=== PATIENT | female | born 1995 | race Caucasian/White ===

== ENCOUNTER 2020-01-16 20:00 | Emergency (ER) | payer BC, SELFPAY ==
[2020-01-16 21:00] VITALS: BP 126/72; PULSE 92; RESP 14; TEMP 36.8; O2SAT 100; BMI 22.3
--- NOTE | 2020-01-16 21:11 | HMH.EDUTC ---
[facility] [place] Clinical Impression: Right lower quadrant abdominal pain Disposition: Still a Patient Condition on Discharge: Fair Referrals: Jade Coleman APRN [Primary Care Provider] - Medical Decision Making - Medical Records Medical records reviewed: No: I reviewed the patient's medical records. - Prince Inquiry Pt receiving controlled substance: No Vital Signs: 01/16/20 21:00 Temperature 98.3 F Temperature Source Oral Pulse Rate [Radial] 92 H Respiratory Rate 14 Blood Pressure [Right Arm] 126/72 Blood Pressure Mean [Right Arm] 90 Blood Pressure Source [Right Arm] Automatic Cuff Blood Pressure Position [Right Arm] Sitting 02 Sat by Pulse Oximetry 100 Oxygen Delivery Method Room Air Medical Decision Narrative: She was transferred to the ER for further evaluation of her abdominal pain. [facility] H[place] - General Stated complaint: bloating stomach pain Time Seen by Provider: 01/16/20 21:11 Mode of Arrival: Ambulatory Source of Information: Patient Limitations: No Limitations Description of Symptoms (Recalled from Triage Doc. by RN): bloatig, pain in lower right side, ausea, light headed, passed out a couple weeks ago HEENT Symptoms (Recalled from RN notes): No Resp Symptoms (Recalled from RN notes): No Skin Symptoms (Recalled from RN notes): No MS Symptoms (Recalled from RN notes): No Functional Status (Recalled from RN notes): wnl - History of Present Illness Provider Complaint: She c/o abdominal bloating and right lower quadrant pain for the past 2 days. 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 She state that she had a gynecological exam and her urine was checked and nothing abnormal was found. She is worried that she may have an appendicitis. - Related Data Allergies Allergy/AdvReac Type Severity Reaction Status Date / Time No Known Allergies Allergy Unverified 03/21/17 14:56 - Worker's Comp Is this a Worker's Comp case?: No [facility] History - Hepatitis A Screen Drug use history?: No High risk sexual behaviors?: No History of sexually transmitted infection?: No Currently employed?: No Childcare worker?: No Do you have indoor plumbing?: Yes Do you have electricity?: Yes Attestation statement:: This patient has been screened for Hepatitis A risk factors. I have reviewed the patient's past medical history: Yes - Social History Smoking Status: Current every day smoker Tobacco Type: cigarettes # Packs/Day (cigarettes): 1 Alcohol Intake: never Occupational Status: employed ROS Obtained: Yes All systems reviewed & no additional complaints - Constitutional Constitutional: Denies chills, Denies fever(s), Reports poor appetite, Reports malaise - Eyes Eyes: Denies eye discharge - ENT Ears, Nose, Mouth, and Throat: Denies dizziness, Denies otalgia, Reports sore throat - Cardiovascular Cardiovascular: Denies chest pain - Respiratory Respiratory: No chest congestion, No cough - Gastrointestinal Gastrointestingal: Reports: as per HPI - Genitourinary Female Genitourinary: Denies dysuria, Denies urinary frequency, Denies urinary incontinence, Denies urinary hesitancy, Denies urinary urgency, Denies vaginal discharge - Musculoskeletal Musculoskeletal: Denies back pain - Integumentary/Breasts Skin/Breast: Denies redness, Denies rash, Denies wounds - Neurologic Neurologic: Denies tingling/numbness/burning sensations Physical Exam - General General appearance: alert, in no apparent distress - Head Head exam: atraumatic, normocephalic, normal inspection - Eye Eye exam: Present: normal appearance, PERRL, EOMI - ENT ENT exam: Present: normal exam, normal oropharynx, mucous membranes moist, TM's normal bilaterally, normal external ear exam - Neck Neck exam: Present: normal inspection, full ROM, trachea midline. Absent: meningismus, lymphadenopathy - Chest Chest inspection: Present: normal inspection, symmetric chest wall rise. Absent: tenderness - Respiratory Res
--- NOTE | 2020-01-16 21:26 | CT_ITS ---
PROCEDURE: CT ABDOMEN PELVIS W CON CLINICAL INDICATION: RLQ pain Right lower quadrant pain COMPARISON: No exams were available for comparison TECHNIQUE: IV Contrast: 75ML OPTIRAY 350 Oral Contrast None Axial images obtained with sagittal and coronal reformats. All CT scans at the facility use one or more dose reduction, viz: automated exposure control, ma/kV adjustment per patient size (including targeted exams where dose is matched to indication, i.e. head), or iterative reconstruction technique. FINDINGS: LOWER THORAX: No acute finding ABDOMEN & PELVIS: Mild splenomegaly at 13 cm. The liver, adrenal glands, and pancreas have an unremarkable appearance. No renal or ureteral calculi. No hydronephrosis. There is mild amount of retained colonic feces. No evidence of appendicitis. There is a small amount of fluid in the pelvis. The uterus is retroverted. No acute bony findings. IMPRESSION: 1. Moderate amount of retained colonic feces. 2. Borderline splenomegaly. 3. Nonspecific small amount of fluid in the pelvis. Dictated by: Ismael Pacheco MD 01/17/2020 06:59 Ismael Pacheco MD in [place] 01/17/2020 06:59
[2020-01-16 21:29] VITALS: BP 133/94; PULSE 70; RESP 16; TEMP 36.9; O2SAT 100; BMI 22.3
--- NOTE | 2020-01-16 21:37 | PC.NURSE ---
fininshed oral contrast at 2130
[2020-01-16 21:38] LABS: Basophils # 0.1 K/mm3 (0-0.2); Eosinophils # 0.5 K/mm3 (0.0-0.4); Eosinophils % 5.1 % (0.1-12.0); Hematocrit 42.5 % (37.0-47.0); Hemoglobin 14.3 g/dL (12.2-16.2); Lymphocytes # 3.7 K/mm3 (0.7-4.5); Lymphocytes % 42.7 % (10-50); Mean Corpuscular HGB Conc 33.6 g/dL (31.8-35.4); Mean Corpuscular Hemoglobin 31.1 pg (27.0-31.2); Mean Corpuscular Volume 92.5 fl (81-99); Monocytes # 0.5 K/mm3 (0.1-1.0); Monocytes % 5.1 % (1.7-9.3); Neutrophils % 46.1 % (37.0-80.0); Platelet Count 264 K/mm3 (142-424); Red Cell Distribution Width 12.8 % (11.5-17.5); White Blood Count 8.7 K/mm3 (4.8-10.8)
[2020-01-16 21:40] LABS: Potassium 3.7 mmoL/L (3.5-5.1); Sodium 140 mmol/L (136-145)
[2020-01-16 21:43] LABS: Alanine Aminotransferase 15 U/L (12-78); Alkaline Phosphatase 60 U/L (38-126); Amylase 81 U/L (30-110); Aspartate Amino Transferase 21 U/L (14-36); Bilirubin,Total 0.5 mg/dl (0.2-1.3); Blood Urea Nitrogen 15 mg/dl (7-17); Calcium 9.6 mg/dl (8.4-10.2); Carbon Dioxide 27 mmol/L (22.0-30.0); Creatinine Clearance Estimated 92 mL/min (50-200); Estimated Glomerular Filt Rate 76 ml/min (>60); GFR (African American) 92 ML/MIN (>60); Glucose 84 mg/dl (74-100)
[2020-01-16 21:44] LABS: Albumin Level 5.1 g/dl (3.5-5.0); Albumin/Globulin Ratio 1.8 (1.1-1.8); Globulin 2.8 g/dL (1.3-3.2); Lipase 135 U/L (23-300); Total Protein,Serum 7.9 g/dl (6.3-8.2)
[2020-01-16 21:52] LABS: HCG Qualitative, Serum Negative (Negative)
[2020-01-16 22:06] VITALS: BP 126/85; PULSE 62; RESP 16; O2SAT 100
[2020-01-16 22:30] LABS: Anion Gap 14.7 mEq/L (5-15); C-Reactive Protein < 0.3 mg/L (0-4); Chloride 102 mmol/L (98-107)
[2020-01-16 22:31] LABS: Erythrocyte Sedimentation Rate 1 mm/hr (0-20)
--- NOTE | 2020-01-16 23:16 | HMH.EDNVD ---
ED Disposition Clinical Impression: Right lower quadrant abdominal pain Abdominal pain Qualifiers: Abdominal location: right lower quadrant Qualified Code(s): R10.31 - Right lower quadrant pain Disposition: Home, Self-Care Condition on Discharge: Good Instructions: DI for Acute Abdomen Additional Instructions: see pcp for follow up Referrals: Jade Coleman APRN [Primary Care Provider] - - Critical Care Critical Care Time: No Attestation: On 01/16/20, the high probability of a clinically significant, sudden or life threatening deterioration of the following system(s) required my full and direct attention, intervention and personal management. The time I documented below is in addition to time spent performing reported procedures but includes the following listed in this critical care notation. Medical Decision Making - Medical Records Medical records reviewed: Yes: I reviewed the patient's medical records. - Prince Inquiry Pt receiving controlled substance: No Vital Signs: 01/16/20 21:00 01/16/20 21:29 01/16/20 22:06 Temperature 98.3 F 98.5 F Temperature Source Oral Oral Pulse Rate [Radial] 92 H 70 62 Respiratory Rate 14 16 16 Blood Pressure [Right Arm] 126/72 133/94 H 126/85 Blood Pressure Mean [Right Arm] 90 107 98 Blood Pressure Source [Right Arm] Automatic Cuff Automatic Cuff Blood Pressure Position [Right Arm] Sitting Sitting 02 Sat by Pulse Oximetry 100 100 100 Oxygen Delivery Method Room Air Room Air Room Air - Lab Data Lab results reviewed: Yes: I reviewed the patient's lab results. Lab Results 01/16/20 21:30: WBC 8.7, RBC 4.60, Hgb 14.3, Hct 42.5, MCV 92.5, MCH 31.1, MCHC 33.6, RDW 12.8, Plt Count 264, MPV 9.0, Neut % (Auto) 46.1, Lymph % (Auto) 42.7, Williams % (Auto) 5.1, Eos % (Auto) 5.1, Baso % (Auto) 1.0, Neut # (Auto) 4.0, Lymph # (Auto) 3.7, Williams # (Auto) 0.5, Eos # (Auto) 0.5 H, Baso # (Auto) 0.1 01/16/20 21:30: ESR 1 01/16/20 21:30: Sodium 140, Potassium 3.7, Chloride 102, Carbon Dioxide 27, Anion Gap 14.7, BUN 15, Creatinine 0.90, Estimated Creat Clear 92, Estimated GFR 76, Est GFR ( Amer) 92, Glucose 84, Calcium 9.6, Total Bilirubin 0.5, AST 21, ALT 15, Alkaline Phosphatase 60, C-Reactive Protein < 0.3, Total Protein 7.9, Albumin 5.1 H, Globulin 2.8, Albumin/Globulin Ratio 1.8, Amylase 81, Lipase 135 01/16/20 21:30: Serum HCG, Qual Negative Result diagrams: 01/16/20 21:30 01/16/20 21:30 Orders (Tests/Meds): ED MEDICATIONS Generic Name Dose Route Start Last Admin Trade Name Freq PRN Reason Stop Dose Admin Sodium Chloride 1,000 mls @ 999 mls/hr 01/16/20 21:45 01/16/20 21:50 Sod Chlor 0.9% 1000ml Bag IV 01/16/20 22:45 999 mls/hr .Q1H1M VIDA Administration Discontinued Medications Generic Name Dose Route Start Last Admin Trade Name Freq PRN Reason Stop Dose Admin Diatrizoate Meglum/Diatrizoate Sod 30 ml 01/16/20 21:29 01/16/20 21:49 Diatrizoate Little 66% & Diatrizoate Na 10% 30ml Udc PO 01/16/20 21:30 30 ml ONCE ONE Administration Ketorolac Tromethamine 30 mg 01/16/20 21:59 01/16/20 22:10 Ketorolac 30mg/Ml Vial IV 01/16/20 22:00 30 mg ONCE ONE Administration Ondansetron HCl 4 mg 01/16/20 21:59 01/16/20 22:10 Ondansetron 4mg/2ml Vial IV 01/16/20 22:00 4 mg ONCE ONE Administration ORDERS Category Date Time Status CT abdomen pelvis w con Stat Cat Scan 01/16/20 21:26 Ordered - CT Data CT Scan: Abdomen, Pelvis Time Received: 23:[address] Reviewed: Yes: I have viewed the radiologist's interpretation Preliminary Findings: Normal/NAD Nausea/Vomiting/Diarrhea HPI - General Chief complaint: Abdominal Pain Stated complaint: bloating stomach pain Time Seen by Provider: 01/16/20 21:11 Mode of Arrival: Ambulatory Source of Information: Patient Limitations: No Limitations Description of Symptoms (Recalled from ER Triage Doc. by RN): pt c/o bloating and RLQ pain or a couple of days. pt stated she went
[2020-01-16 23:33] VITALS: BP 131/93; PULSE 84; RESP 16; TEMP 36.7; O2SAT 97
== END 2020-01-16 23:35 | disposition home or self-care (01) ==
LOC: UTC 21:16 → ER 21:18
PROVIDERS: Emergency Provider Emergency Medicine; PCP Nurse Practitioner Family
DX: R10.31 Right lower quadrant pain (principal); R42 Dizziness and giddiness; F17.210 Nicotine dependence, cigarettes, uncomplicated
CPT/HCPCS: 74177; 80053; 82150; 83690; 84703; 85025; 85651; 86140; 96365; 96375; 99284; J2405; Q9967

== ENCOUNTER 2020-01-20 10:48 | Emergency (ER) | payer BC, SELFPAY ==
[2020-01-20 11:08] VITALS: BP 134/84; PULSE 84; RESP 14; TEMP 37.2; O2SAT 100; BMI 22.3
--- NOTE | 2020-01-20 11:26 | HMH.EDUTC ---
[facility] [place] Clinical Impression: Exposure to COVID-19 virus Left otitis media Qualifiers: Otitis media type: suppurative Chronicity: acute Recurrence: non-recurrent Spontaneous tympanic membrane rupture: without spontaneous rupture Qualified Code(s): H66.002 - Acute suppurative otitis media without spontaneous rupture of ear drum, left ear Disposition: Home, Self-Care Condition on Discharge: Good Instructions: Middle Ear Infection, Preventing the Spread of Coronavirus Discharge Instructions Additional Instructions: Drink plenty of fluids. Take tylenol or ibuprofen for pain or fever. Take the medications as directed. Follow up with your regular doctor. GO TO THE ER FOR ANY WORSENING SYMPTOMS FOLLOW THE DIRECTIONS ON THE COVID-19 HAND OUT THAT WE GAVE YOU REGARDING SELF-ISOLATION UNTIL YOU KNOW YOUR COVID-19 RESULTS Prescriptions: Amoxicillin [Amoxicillin 500mg Tab] 500 mg PO TID 10 Days #30 tab Transmission Status: Received by [id number] Referrals: Jade Coleman APRN [Primary Care Provider] - Forms: Work/School Release Time of Disposition: 11:34 Medical Decision Making - Medical Records Medical records reviewed: No: I reviewed the patient's medical records. - Prince Inquiry Pt receiving controlled substance: No Vital Signs: 01/20/20 11:08 01/20/20 11:58 Temperature 99 F 99 F Temperature Source Oral Oral Pulse Rate 84 Pulse Rate [Radial] 84 Respiratory Rate 14 14 Blood Pressure 134/84 Blood Pressure [Right Arm] 134/84 Blood Pressure Mean [Right Arm] 100 Blood Pressure Source Automatic Cuff Blood Pressure Source [Right Arm] Automatic Cuff Blood Pressure Position Sitting Blood Pressure Position [Right Arm] Sitting 02 Sat by Pulse Oximetry 100 Oxygen Delivery Method Room Air Room Air - Lab Data Lab results reviewed: Yes: I reviewed the patient's lab results. Orders (Tests/Meds): ORDERS Category Date Time Status Covid-19 Nasal PCR Sendout Buck Routine Lab 01/20/20 10:56 Received [facility] [place] HPI - General Stated complaint: Covid test Time Seen by Provider: 01/20/20 11:26 Mode of Arrival: Ambulatory Source of Information: Patient Limitations: No Limitations Description of Symptoms (Recalled from Triage Doc. by RN): exposed last mon, left ear pain HEENT Symptoms (Recalled from RN notes): Yes Resp Symptoms (Recalled from RN notes): No Skin Symptoms (Recalled from RN notes): No MS Symptoms (Recalled from RN notes): No Functional Status (Recalled from RN notes): wnl - History of Present Illness Provider Complaint: She complains of left ear pain for the past 2 days. She also was exposed to covid-19 at her job last week. 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 She denies any other symptoms. She states that she has allergies and she thinks that is why the ear is getting infected. - Related Data Previous Rx's Medication Instructions Recorded Amoxicillin [Amoxicillin 500mg Tab] 500 mg PO TID 10 Days #30 tab 01/20/20 Allergies Allergy/AdvReac Type Severity Reaction Status Date / Time No Known Allergies Allergy Unverified 03/21/17 14:56 - Worker's Comp Is this a Worker's Comp case?: No [facility] History - Hepatitis A Screen Drug use history?: No High risk sexual behaviors?: No History of sexually transmitted infection?: No Currently employed?: No Childcare worker?: No Do you have indoor plumbing?: Yes Do you have electricity?: Yes Attestation statement:: This patient has been screened for Hepatitis A risk factors. I have reviewed the patient's past medical history: Yes - Social History Smoking Status: Current every day smoker Tobacco Type: cigarettes # Packs/Day (cigarettes): 1 Alcohol Intake: never Occupational Status: employed Housing: house ROS Obtained: Yes All systems reviewed & no additional complaints - Constitutional Constitutional: Denies chills, Denies fever(s), Reports poor jennifer
[2020-01-20 11:58] VITALS: BP 134/84; PULSE 84; RESP 14; TEMP 37.2; O2SAT 100
[2020-01-21 13:50] LABS: Covid-19 Nasal PCR Sendout Lex Not Detected
== END 2020-01-20 11:59 | disposition home or self-care (01) ==
PROVIDERS: Emergency Provider Nurse Practitioner Family; PCP Nurse Practitioner Family
DX: Z20.828 Contact with and (suspected) exposure to other viral communicable diseases (principal); H66.002 Acute suppurative otitis media without spontaneous rupture of ear drum, left ear; F17.210 Nicotine dependence, cigarettes, uncomplicated
CPT/HCPCS: 99201; U0004

== ENCOUNTER → 2021-03-09 12:47 | Outpatient (CLI) | payer OTHER, SELFPAY | PROVIDERS: Visit Provider Nurse Practitioner Family | DX: M54.50 Low back pain, unspecified (principal); N30.00 Acute cystitis without hematuria | CPT/HCPCS: 87086; 87088; 87186 ==

== ENCOUNTER 2021-03-29 16:08 | Emergency (ER) | payer OTHER, SELFPAY ==
[2021-03-29 17:30] VITALS: BP 138/82; PULSE 72; RESP 18; TEMP 36.9; O2SAT 100; BMI 21.6
--- NOTE | 2021-03-29 18:05 | HMH.EDUTC ---
[facility] [place] Disposition Clinical Impression: Impetigo Disposition: Home, Self-Care Condition on Discharge: Good Instructions: Impetigo, DI for Impetigo, Amoxicillin and Clavulanic Acid Additional Instructions: Take medication as prescribed FOllow up with Family Doctor if no improvement or any worsening of symptoms Return if needed Use ointment as prescribed Straight to ER if any life threatening symptoms Prescriptions: Mupirocin [Bactroban 2% Ointment 22gm tube] 1 applicatio TP TID 10 Days #22 gm Transmission Status: Pending to [id number] cephALEXin [cephALEXin 500mg capsule*] 500 mg PO Q12H 10 Days #20 cap Transmission Status: Pending to [id number] Referrals: Lakshmi Jefferson APRN [Primary Care Provider] - As needed Time of Disposition: 18:19 Medical Decision Making - Prince Inquiry Pt receiving controlled substance: No Prince was queried for this patient: No Vital Signs: 03/29/21 17:30 Temperature 98.4 F Temperature Source Oral Pulse Rate [Right Brachial] 72 Respiratory Rate 18 Blood Pressure [Right Arm] 138/82 Blood Pressure Mean [Right Arm] 100 Blood Pressure Source [Right Arm] Automatic Cuff Blood Pressure Position [Right Arm] Sitting 02 Sat by Pulse Oximetry 100 Oxygen Delivery Method Room Air Medical Decision Narrative: Medication discussed with pharmacy [facility] [place] HPI - General Stated complaint: rash under L arm Time Seen by Provider: 03/29/21 18:05 Mode of Arrival: Ambulatory Source of Information: Patient Limitations: No Limitations Description of Symptoms (Recalled from Triage Doc. by RN): PATIENT C/O RASH UNDER LEFT ARM X 1 WEEK HEENT Symptoms (Recalled from RN notes): No Resp Symptoms (Recalled from RN notes): No Skin Symptoms (Recalled from RN notes): Yes MS Symptoms (Recalled from RN notes): No Functional Status (Recalled from RN notes): WNL - History of Present Illness Provider Complaint: Patient states that she has had a rash under her left arm states that she has had rash for several days and continued to get worse States that today it was itching and burning and so she came in to get checked - Related Data Previous Rx's Medication Instructions Recorded cephalexin 500 mg capsule 500 mg PO Q12H 10 Days #20 cap 02/28/21 Mupirocin [Bactroban 2% Ointment 1 applicatio TP TID 10 Days #22 gm 03/29/21 22gm tube] cephALEXin [cephALEXin 500mg 500 mg PO Q12H 10 Days #20 cap 03/29/21 capsule*] Allergies Allergy/AdvReac Type Severity Reaction Status Date / Time ibuprofen AdvReac Severe kindey Verified 02/28/21 13:44 issues - Worker's Comp Is this a Worker's Comp case?: No [facility] History - Hepatitis A Screen Drug use history?: No High risk sexual behaviors?: No History of sexually transmitted infection?: No Currently employed?: No Childcare worker?: No Do you have indoor plumbing?: Yes Do you have electricity?: Yes Attestation statement:: This patient has been screened for Hepatitis A risk factors. I have reviewed the patient's past medical history: Yes - Social History Smoking Status: Current every day smoker Tobacco Type: cigarettes # Packs/Day (cigarettes): 1 Alcohol Intake: never Occupational Status: employed Housing: house ROS Obtained: Yes All systems reviewed & no additional complaints, Yes Systems reviewed as appropriate & no additional complaints - Constitutional Constitutional: Reports system reviewed and no additional complaints, except as docu - ENT Ears, Nose, Mouth, and Throat: Reports system reviewed and no additional complaints, except as docu - Cardiovascular Cardiovascular: Reports system reviewed and no additional complaints, except as docu - Respiratory Respiratory: Reports system reviewed and no additional complaints, except as docu - Integumentary/Breasts Skin/Breast: Reports system reviewed and no additional complaints, except as docu Comments: Rash under left arm pit Physical Exam - Ge
[2021-03-29 18:22] VITALS: BP 138/82; PULSE 72; RESP 18; TEMP 36.9; O2SAT 100
== END 2021-03-29 18:26 | disposition home or self-care (01) ==
PROVIDERS: Emergency Provider Nurse Practitioner; PCP Nurse Practitioner Family
DX: L01.00 Impetigo, unspecified (principal); F17.210 Nicotine dependence, cigarettes, uncomplicated
CPT/HCPCS: 99202; G0463

== ENCOUNTER → 2021-04-14 09:01 | Outpatient (CLI) | payer OTHER, SELFPAY ==
[2021-04-14 09:04] LABS: Microscopic, Urine URINE MICROSCOPIC (MICROSCOPIC)
[2021-04-14 09:39] LABS: Appearance,Urine CLEAR (Clear); Bilirubin,Urine Negative (Negative); Blood, Urine 2+ (Negative); Color,Urine YELLOW (Yellow); Glucose,Urine (UA) Negative (Negative); Ketones,Urine Negative (Negative); Leukocyte Esterase,Urine Negative (Negative); Nitrate,Urine Negative (Negative); Protein,Urine 2+ (Negative); Specific Gravity, Urine >= 1.030 (1.005-1.030); Urobilinogen,Urine 0.2 EU/dl (0.2)
[2021-04-14 09:57] LABS: Bacteria,Urine Trace /lpf
[2021-04-14 10:13] LABS: Chloride 106 mmol/L (98-107); Potassium 4.2 mmoL/L (3.5-5.1); Sodium 140 mmol/L (136-145)
[2021-04-14 10:16] LABS: Alanine Aminotransferase 8 U/L (12-78); Albumin Level 4.5 g/dl (3.5-5.0); Alkaline Phosphatase 44 U/L (38-126); Anion Gap 11.2 mEq/L (5-15); Aspartate Amino Transferase 16 U/L (14-36); Bilirubin,Total 0.6 mg/dl (0.2-1.3); Blood Urea Nitrogen 19 mg/dl (7-17); Calcium 9.4 mg/dl (8.4-10.2); Carbon Dioxide 27 mmol/L (22.0-30.0); Estimated Glomerular Filt Rate 101 ml/min (>60); GFR (African American) 122 ML/MIN (>60); Globulin 2.3 g/dL (1.3-3.2); Glucose 92 mg/dl (74-100); Total Protein,Serum 6.8 g/dl (6.3-8.2)
== END ==
PROVIDERS: PCP Nurse Practitioner Family; Visit Provider Internal Medicine
DX: R80.0 Isolated proteinuria (principal); R31.1 Benign essential microscopic hematuria
CPT/HCPCS: 36415; 80053; 81001

== ENCOUNTER → 2021-05-26 09:54 | Outpatient (CLI) | payer OTHER, SELFPAY ==
--- NOTE | 2021-05-26 | US_ITS ---
FINAL REPORT CLINICAL HISTORY: FREQUENT UTI FINDINGS: Sonographic images were obtained of the urinary bladder. The bladder has a normal configuration. The bladder volume is 190 mL. Ureteral jets are visualized. No masses are seen. IMPRESSION: Unremarkable urinary bladder. Reviewed, Interpreted and Dictated by Jae Bustos MD Transcribed by Barb Campbell Authenticated by Jae Bustos MD on 05/26/2021 01:13:08 PM [facility]
--- NOTE | 2021-05-26 09:59 | US_ITS ---
FINAL REPORT TECHNIQUE: Ultrasound images of the kidneys were obtained. CLINICAL HISTORY: URINE FREQUENCY, STAGE1 CHRONIC KIDNEY DISEASE,RECURRENT UTI FINDINGS: The right kidney measures 10.4 cm in length. It is normal in echogenicity. There is no hydronephrosis. The left kidney measures 10.9 cm in length. It is normal in echogenicity. There is no hydronephrosis. The spleen measures 10.9 cm and is unremarkable. IMPRESSION: No hydronephrosis. Reviewed, Interpreted and Dictated by Jae Bustos MD Transcribed by Barb Campbell Authenticated by Jae Bustos MD on 05/26/2021 01:13:00 PM [facility]
== END ==
PROVIDERS: PCP Nurse Practitioner Family; Visit Provider Internal Medicine Adolescent Medicine
DX: N39.0 Urinary tract infection, site not specified (principal); R35.0 Frequency of micturition; N18.1 Chronic kidney disease, stage 1
CPT/HCPCS: 76770; 76857

== ENCOUNTER 2021-09-11 08:43 | Emergency (ER) | payer OTHER, SELFPAY ==
[2021-09-11 08:45] VITALS: BP 125/78; PULSE 61; RESP 18; TEMP 36.6; O2SAT 98; BMI 21.6
[2021-09-11 08:56] VITALS: BP 125/78; PULSE 61; RESP 18; TEMP 36.6; O2SAT 98
--- NOTE | 2021-09-11 08:56 | HMH.EDUTC ---
[facility] [place] Disposition Clinical Impression: Sinusitis Qualifiers: Sinusitis location: unspecified location Chronicity: unspecified Qualified Code(s): J32.9 - Chronic sinusitis, unspecified Disposition: Home, Self-Care Condition on Discharge: Good Instructions: Sinusitis, DI for Sinusitis Additional Instructions: *Monitor Temp, Over the counter Motrin or Tylenol as directed/as needed Tylenol every 4 hours and Motrin every 6 hours (as long as your family doctor has told you that you can take it) for fever or pain. and straight to ER if unable to lower temp less than 101.0 after medication given *Warm salt water gargles may help to soothe the throat *Throat Lozenges *Warm fluids like tea with honey may help to soothe the throat *Sleep elevated *Humidifier/Vaporizer Take medication as prescribed Follow up IMMEDIATELY for new or worsening symptoms or no Noticeable improvement over the next 48-72 hours. 911 for difficulty breathing or swallowing Prescriptions: Brompheniramine/Pseudoephed/Dm [Bromfed Dm Cough Syrup] 5 - 10 ml PO Q4-6H PRN #200 ml PRN Reason: Cough Transmission Status: Pending to [id number] methylPREDNISolone [Medrol 4mg tab] 4 mg PO DIRECTED #21 tab Transmission Status: Pending to [facility] Azithromycin [Z-Mario 250mg Tab] 250 mg PO DIRECTED #6 tab Transmission Status: Pending to [id number] Referrals: Lakshmi Jefferson APRN [Primary Care Provider] - As needed Time of Disposition: 09:00 Medical Decision Making - Prince Inquiry Pt receiving controlled substance: No Prince was queried for this patient: No Vital Signs: 09/11/21 08:45 Temperature 97.9 F Temperature Source Oral Pulse Rate [Right Brachial] 61 Respiratory Rate 18 Blood Pressure [Right Arm] 125/78 Blood Pressure Mean [Right Arm] 93 Blood Pressure Source [Right Arm] Automatic Cuff Blood Pressure Position [Right Arm] Sitting 02 Sat by Pulse Oximetry 98 Oxygen Delivery Method Room Air Medical Decision Narrative: Denies reports just got off her menstrual period [facility] [place] HPI - General Stated complaint: sore throat, cough Time Seen by Provider: 09/11/21 08:56 Mode of Arrival: Ambulatory Source of Information: Patient Limitations: No Limitations Description of Symptoms (Recalled from Triage Doc. by RN): PATIENT C/O COUGH, SORE THROAT, AND SINUS DRAINAGE X 3 DAYS HEENT Symptoms (Recalled from RN notes): Yes Resp Symptoms (Recalled from RN notes): Yes Skin Symptoms (Recalled from RN notes): No MS Symptoms (Recalled from RN notes): No Functional Status (Recalled from RN notes): WNL - History of Present Illness Provider Complaint: Patient states that she has been having sinus pain and pressure, sore throat and cough State that it has been going one for the last week but got worse in the last 3-4 days States that today she was feeling worse so she came in - Related Data Previous Rx's Medication Instructions Recorded Azithromycin [Z-Mario 250mg Tab] 250 mg PO DIRECTED #6 tab 09/11/21 Brompheniramine/Pseudoephed/Dm 5 - 10 ml PO Q4-6H PRN #200 ml 09/11/21 [Bromfed Dm Cough Syrup] methylPREDNISolone [Medrol 4mg 4 mg PO DIRECTED #21 tab 09/11/21 tab] Allergies Allergy/AdvReac Type Severity Reaction Status Date / Time ibuprofen AdvReac Severe kindey Verified 02/28/21 13:44 issues - Worker's Comp Is this a Worker's Comp case?: No [facility] History - Hepatitis A Screen Attestation statement:: This patient has been screened for Hepatitis A risk factors. I have reviewed the patient's past medical history: Yes Laterality Cases: Bilateral: Tonsillectomy - Social History Smoking Status: Current every day smoker Tobacco Type: cigarettes # Packs/Day (cigarettes): 1 Alcohol Intake: never Occupational Status: other Housing: house ROS Obtained: Yes All systems reviewed & no additional complaints, Yes Systems reviewed as appropriate & no additional complai
== END 2021-09-11 09:00 | disposition home or self-care (01) ==
PROVIDERS: Emergency Provider Nurse Practitioner; PCP Nurse Practitioner Family
DX: J32.9 Chronic sinusitis, unspecified (principal); J02.9 Acute pharyngitis, unspecified; F17.210 Nicotine dependence, cigarettes, uncomplicated; Z79.52 Long term (current) use of systemic steroids; Z88.6 Allergy status to analgesic agent
CPT/HCPCS: 99213; G0463

== ENCOUNTER 2022-05-14 08:31 | Emergency (ER) | payer OTHER, SELFPAY ==
[2022-05-14 08:40] VITALS: BP 141/83; PULSE 84; RESP 20; TEMP 36.5; O2SAT 98; BMI 29.4
[2022-05-14 08:56] LABS: UTC Strep Screen (Rapid) Negative (Negative)
--- NOTE | 2022-05-14 08:56 | EXP.UTC ---
Discharge Plan Disposition Patient Disposition: Home, Self-Care Condition: Good Prescriptions Prescriptions: New amoxicillin [amoxicillin] 500 mg tablet 500 mg PO TID 10 Days Qty: 30 0RF No Action azithromycin 250 MG tablet 250 mg PO DIRECTED Qty: 6 0RF Rx Instructions: Take two (2) tablets on day #1, then one (1) tablet day #2 thru #5 methylprednisolone 4 MG tablet 4 mg PO DIRECTED Qty: 21 0RF Rx Instructions: Take as directed on package instructions [id number] 118 ML syrup 5 - 10 ml PO Q4-6H PRN (Reason: Cough) Qty: 200 0RF Referrals Follow up/Referrals: Clay Gallagher MD [Primary Care Provider] - See instructions Activity Restrictions/Add. Instructions Additional Instructions/Restrictions: Drink plenty of fluids. Take tylenol or ibuprofen for pain or fever. Take the medications as directed. Follow up with your regular doctor. GO TO THE ER FOR ANY WORSENING SYMPTOMS Clinical Impressions Clinical Impression: Pharyngitis Instructions Patient Instructions: Sore Throat, DI for Pharyngitis/Tonsillopharyngitis -- Adult Discharge ED Provider: Dusty Vines [facility] General Stated complaint: sore throat Time Seen by Provider: 05/14/22 08:56 History of Present Illness Provider Complaint: She states for the past 3 days she has had sore throat, sinus congestion and she has felt bad. Related Data Previous Rx's Medication Instructions Recorded azithromycin 250 mg tablet 250 mg PO DIRECTED #6 tabs 09/11/21 [id number]-otyciokepyfjcpd-ZI 5 - 10 ml PO Q4-6H PRN Cough #200 09/11/21 2 mg-30 mg-10 mg/5 mL oral syrup mL methylprednisolone 4 mg tablet 4 mg PO DIRECTED #21 tabs 09/11/21 amoxicillin 500 mg tablet 500 mg PO TID 10 days #30 tabs 05/14/22 Allergies Allergy/AdvReac Type Severity Reaction Status Date / Time ibuprofen AdvReac Severe kindey Verified 01/03/22 10:30 issues [facility] Disclaimer: The information contained in this section may have been updated after the patient was seen, as this information can be updated by other users. Medical History Urinary tract infection Surgical History History of section History of tonsillectomy Social History Smoking Status: Current every day smoker tobacco type: cigarettes packs per day: 1 second hand exposure: Yes alcohol intake: never substance use type: denies use current occupational status: employed Travel in the last 8 weeks: None housing: house number of children: 2 ROS Obtained: Yes All systems reviewed & no additional complaints except as documented Constitutional Constitutional: Reports chills and Reports fever(s) Eyes Eyes: Denies eye discharge ENT Ears, Nose, Mouth, and Throat: Reports as per HPI Cardiovascular Cardiovascular: Denies chest pain Respiratory Respiratory: Denies chest congestion and Reports cough Gastrointestinal Gastrointestingal: Reports nausea; Denies abdominal pain, constipation, cramping, diarrhea or vomiting Musculoskeletal Musculoskeletal: Denies arthralgias Integumentary/Breasts Skin/Breast: Denies rash Neurologic Neurologic: Denies paresthesias Physical Exam General General appearance: alert and in no apparent distress Head Head exam: atraumatic, normocephalic and normal inspection Eye Eye exam: Present normal appearance, PERRL and EOMI ENT ENT exam: Present mucous membranes moist and normal external ear exam Expanded ENT Exam TM/Canal exam: Bilateral TM: erythema and bulging Nose exam: Absent sinus tenderness Mouth exam: Present normal external inspection; Absent drooling Teeth exam: Present normal inspection Throat exam: Present tonsillar erythema, tonsillomegaly and tonsillar exudate Neck Neck exam: Present normal inspection, full ROM an
[2022-05-14 09:12] VITALS: BP 141/83; PULSE 84; RESP 20; TEMP 36.5; O2SAT 98
== END 2022-05-14 09:32 | disposition home or self-care (01) ==
PROVIDERS: Emergency Provider Nurse Practitioner Family; PCP Internal Medicine Adolescent Medicine
DX: J02.9 Acute pharyngitis, unspecified (principal)
CPT/HCPCS: 87880; 99212; 99213; G0463

== ENCOUNTER → 2022-10-22 10:54 | Outpatient (CLI) | payer OTHER, SELFPAY | PROVIDERS: PCP Internal Medicine Adolescent Medicine; Visit Provider Internal Medicine Adolescent Medicine | DX: N39.0 Urinary tract infection, site not specified (principal); B96.29 Other Escherichia coli [E. coli] as the cause of diseases classified elsewhere | CPT/HCPCS: 87086; 87186 ==

== ENCOUNTER → 2022-12-28 13:53 | Outpatient (CLI) | payer OTHER, SELFPAY ==
--- NOTE | 2022-12-28 13:56 | US_ITS ---
FINAL REPORT TECHNIQUE: Ultrasound images of the kidneys and bladder were obtained. CLINICAL HISTORY: BLOOD IN URINE COMPARISON: None FINDINGS: The right kidney measures 9.9 cm in length. It is normal in echogenicity. There is no hydronephrosis. The left kidney measures 10.4 cm in length. It is normal in echogenicity. There is no hydronephrosis. IMPRESSION: No renal abnormality identified. Reviewed, Interpreted and Dictated by Jane Horne MD Transcribed by Delicia Arauz Authenticated and [facility]
== END ==
PROVIDERS: PCP Internal Medicine Adolescent Medicine; Visit Provider Urology
DX: R31.9 Hematuria, unspecified (principal)
CPT/HCPCS: 76770

== ENCOUNTER 2023-01-15 08:17 | Emergency (ER) | payer OTHER, SELFPAY ==
[2023-01-15 08:33] LABS: Microscopic, Urine URINE MICROSCOPIC (MICROSCOPIC)
[2023-01-15 08:36] VITALS: BP 131/87; PULSE 67; RESP 18; TEMP 37; O2SAT 98; BMI 25.5
[2023-01-15 08:37] LABS: Appearance,Urine CLEAR (Clear); Bilirubin,Urine Negative (Negative); Blood, Urine 1+ (Negative); Color,Urine YELLOW (Yellow); Glucose,Urine (UA) Negative (Negative); Ketones,Urine Negative (Negative); Leukocyte Esterase,Urine TRACE (Negative); Nitrate,Urine POSITIVE (Negative); PH,Urine 6.5 (5.0-8.5); Protein,Urine Negative (Negative)
--- NOTE | 2023-01-15 08:39 | EXP.UTC ---
Discharge Plan Disposition Patient Disposition: Home, Self-Care Condition: Good Prescriptions Prescriptions: New nitrofurantoin monohyd/m-cryst [Macrobid] 100 mg capsule 100 mg PO Q12H 7 Days Qty: 14 0RF Rx Instructions: must administer with a meal/food No Action azithromycin 250 MG tablet 250 mg PO DIRECTED Qty: 6 0RF Rx Instructions: Take two (2) tablets on day #1, then one (1) tablet day #2 thru #5 methylprednisolone 4 MG tablet 4 mg PO DIRECTED Qty: 21 0RF Rx Instructions: Take as directed on package instructions toafiiwufraxwej-zvduelwob-CA 118 ML syrup 5 - 10 ml PO Q4-6H PRN (Reason: Cough) Qty: 200 0RF amoxicillin [amoxicillin] 500 mg tablet 500 mg PO TID 10 Days Qty: 30 0RF Referrals Follow up/Referrals: Clay Gallagher MD [Primary Care Provider] - See instructions Activity Restrictions/Add. Instructions Additional Instructions/Restrictions: *Increase fluids. Water not Soda or Tea *Start antibiotic immediately and be sure to take as ordered for the FULL length of time although you should start to see improvement over the next 48 hours *Be SURE to follow up anytime for new or worsening symptoms with your family doctor. AND in 48 hours for urine culture results with your family doctor, if you do not have a doctor then you may call back to the [facility] for urine culture results and further treatment. We do recommend that you choose and establish care with a Primary Care Physician. ?AND follow up with them ?in 10-14 days to repeat UA to ensure infection is resolved and blood no longer present *Be sure to let your PCP know that we sent urine cultures from the [facility] so they can follow up to ensure that you area the on the correct antibiotic Call your doctor office and make appointment for 48 hours (2 days from today) ?to follow up and get the results of your urine culture and further treatment Clinical Impressions Clinical Impression: UTI (urinary tract infection) Qualifiers: Urinary tract infection type: site unspecified Hematuria presence: without hematuria Qualified Code(s): N39.0 - Urinary tract infection, site not specified Instructions Patient Instructions: DI for Urinary Tract Infection (UTI), Urinary Tract Infection, Nitrofurantoin Discharge ED Provider: Maggie [place] [facility] [place] General Stated complaint: possible uti Source of Information: Patient Time Seen by Provider: 01/15/23 08:39 Description of Symptoms (Recalled from Triage Doc. by RN): Pt c/o frequent urination with burning that started yesterday HEENT Symptoms (Recalled from RN notes): No Resp Symptoms (Recalled from RN notes): No Skin Symptoms (Recalled from RN notes): No MS Symptoms (Recalled from RN notes): No Functional Status (Recalled from RN notes): wnl History of Present Illness Provider Complaint: Patient states that she has a history of UTI States that yesterday she started with urgency and frequency and having burning with urination States that this morning it wasnt any better so she came in to get checked to see if she may have a UTI Related Data Previous Rx's Medication Instructions Recorded azithromycin 250 mg tablet 250 mg PO DIRECTED #6 tabs 09/11/21 [id number]-jcmnkvsxsizuqvj-WS 5 - 10 ml PO Q4-6H PRN Cough #200 09/11/21 2 mg-30 mg-10 mg/5 mL oral syrup mL methylprednisolone 4 mg tablet 4 mg PO DIRECTED #21 tabs 09/11/21 amoxicillin 500 mg tablet 500 mg PO TID 10 days #30 tabs 05/14/22 nitrofurantoin 100 mg PO Q12H 7 days #14 caps 01/15/23 monohydrate/macrocrystals 100 mg capsule (Macrobid) Allergies Allergy/AdvReac Type Severity Reaction Status Date / Time ibuprofen AdvReac Severe kindey Verified 01/03/22 10:30 issues Worker's Comp Is this a Worker's Comp case?: No PFS PFS Disclaimer: The information contained in this section may have been updated after the patient was seen, as this information can be updated by other users. Medical Hi
[2023-01-15 08:52] LABS: Bacteria,Urine Trace /lpf
[2023-01-15 09:09] VITALS: BP 131/87; PULSE 67; RESP 18; TEMP 37; O2SAT 98
== END 2023-01-15 09:18 | disposition home or self-care (01) ==
PROVIDERS: Emergency Provider Nurse Practitioner; PCP Internal Medicine Adolescent Medicine
DX: N39.0 Urinary tract infection, site not specified (principal); F17.210 Nicotine dependence, cigarettes, uncomplicated
CPT/HCPCS: 81001; 99212; 99214; G0463

== ENCOUNTER → 2023-02-25 10:29 | Outpatient (CLI) | payer OTHER, SELFPAY ==
[2023-02-25 10:44] LABS: Basophils # 0.1 K/mm3 (0-0.2); Basophils % 0.7 % (0.1-2.0); Eosinophils # 0.3 K/mm3 (0.0-0.4); Eosinophils % 3.3 % (0.1-12.0); Hemoglobin 14.2 g/dL (12.2-16.2); Lymphocytes # 1.8 K/mm3 (0.7-4.5); Mean Corpuscular HGB Conc 35.5 g/dL (31.8-35.4); Mean Corpuscular Hemoglobin 32.3 pg (27.0-31.2); Mean Platelet Volume 9.9 fl (7.4-10.4); Monocytes # 0.3 K/mm3 (0.1-1.0); Monocytes % 3.6 % (1.7-9.3); Neutrophils # 6.7 K/mm3 (1.8-7.8); Neutrophils % 72.5 % (37.0-80.0); Platelet Count 233 K/mm3 (142-424); Red Cell Distribution Width 13.1 % (11.5-17.5); White Blood Count 9.2 K/mm3 (4.8-10.8)
[2023-02-25 11:47] LABS: Alanine Aminotransferase 15 U/L (12-78); Albumin Level 4.8 g/dl (3.5-5.0); Albumin/Globulin Ratio 1.9 (1.1-1.8); Alkaline Phosphatase 59 U/L (38-126); Anion Gap 11.9 mEq/L (5-15); Aspartate Amino Transferase 19 U/L (14-36); Bilirubin,Total 1.2 mg/dl (0.2-1.3); Blood Urea Nitrogen 12 mg/dl (7-17); Calcium 9.1 mg/dl (8.4-10.2); Carbon Dioxide 26 mmol/L (22.0-30.0); Chloride 102 mmol/L (98-107); Estimated Glomerular Filt Rate 85 ml/min (>60); GFR (African American) 103 ML/MIN (>60); Globulin 2.5 g/dL (1.3-3.2); Glucose 86 mg/dl (74-100); Potassium 3.9 mmoL/L (3.5-5.1); Sodium 136 mmol/L (136-145); Total Protein,Serum 7.3 g/dl (6.3-8.2)
== END ==
PROVIDERS: PCP Internal Medicine Adolescent Medicine; Visit Provider Internal Medicine Adolescent Medicine
DX: R30.0 Dysuria (principal); N18.1 Chronic kidney disease, stage 1; B96.29 Other Escherichia coli [E. coli] as the cause of diseases classified elsewhere; B96.89 Other specified bacterial agents as the cause of diseases classified elsewhere
CPT/HCPCS: 36415; 80053; 85025; 87086

== ENCOUNTER 2023-04-08 08:28 | Emergency (ER) | payer OTHER, SELFPAY ==
[2023-04-08 08:50] VITALS: BP 124/89; PULSE 90; RESP 18; TEMP 36.7; O2SAT 100; BMI 23.3
[2023-04-08 09:02] LABS: Apearance,Urine Cloudy (Clear); Color,Urine Dark Yellow (Yellow); Glucose,Urine (UA) Negative (Negative); Ketones,Urine Negative (Negative); Protein,Urine Trace (Negative); Specific Gravity, Urine 1.025 (1.005-1.030)
[2023-04-08 09:03] LABS: Bilirubin,Urine Negative (Negative); Blood, Urine Negative (Negative); UTC Leukocyte Esterase,Urine Trace (Negative); UTC Nitrate,Urine Positive (Negative); Urobilinogen,Urine 0.2 EU/dl (0.2)
[2023-04-08 09:16] VITALS: BP 124/89; PULSE 90; RESP 18; TEMP 36.7; O2SAT 100
--- NOTE | 2023-04-08 09:24 | ED_ITS ---
Discharge Plan Disposition Patient Disposition: Home, Self-Care Condition: Good Prescriptions Prescriptions: New cefdinir 300 mg capsule 300 mg PO BID Qty: 20 0RF phenazopyridine [Pyridium] 200 mg tablet 200 mg PO Q8H 2 Days Qty: 6 0RF No Action No Known Home Medications Referrals Follow up/Referrals: Clay Gallagher MD [Primary Care Provider] - See instructions Activity Restrictions/Add. Instructions Additional Instructions/Restrictions: *Increase fluids. Water not Soda or Tea *Start antibiotic immediately and be sure to take as ordered for the FULL length of time although you should start to see improvement over the next 48 hours *Pyridium as needed Remember this medication will turn your urine . This is normal but it will stain what ever it gets on *You should not use Pyridium for more than 48 hours. If so , follow up with your primary physician to review urine culture and ensure that antibiotic is adequate for infection *Be SURE to follow up anytime for new or worsening symptoms with your family doctor. AND in 48 hours for urine culture results with your family doctor, if you do not have a doctor then you may call back to the [facility] for urine culture results and further treatment. We do recommend that you choose and establish care with a Primary Care Physician. ?AND follow up with them ?in 10-14 days to repeat UA to ensure infection is resolved and blood no longer present *Be sure to let your PCP know that we sent urine cultures from the [facility] so they can follow up to ensure that you area the on the correct antibiotic Call your doctor office and make appointment for 48 hours (2 days from today) ?to follow up and get the results of your urine culture and further treatment Clinical Impressions Clinical Impression: UTI (urinary tract infection) Qualifiers: Hematuria presence: without hematuria Instructions Patient Instructions: DI for Urinary Tract Infection (UTI) Discharge ED Provider: Maggie East [facility] [place] HPI General Stated complaint: abd pain Mode of Arrival: Ambulatory Source of Information: Patient Limitations: No Limitations Time Seen by Provider: 04/08/23 09:24 Description of Symptoms (Recalled from Triage Doc. by RN): PATIENT C/O BURNING AND FREQUENCY WITH URINATION SINCE YESTERDAY HEENT Symptoms (Recalled from RN notes): No Resp Symptoms (Recalled from RN notes): No Skin Symptoms (Recalled from RN notes): No MS Symptoms (Recalled from RN notes): No Functional Status (Recalled from RN notes): WNL History of Present Illness Provider Complaint: Patient states that she started yesterday with burning with urination States that she gets UTI's and feels like she has another UTI so she came in before it got too bad Related Data Home Medications Medication Instructions Recorded Confirmed No Known Home Medications 04/08/23 04/08/23 Previous Rx's Medication Instructions Recorded cefdinir 300 mg capsule 300 mg PO BID #20 caps 04/08/23 phenazopyridine 200 mg tablet 200 mg PO Q8H pain 2 days #6 tabs 04/08/23 (Pyridium) Allergies Allergy/AdvReac Type Severity Reaction Status Date / Time ibuprofen AdvReac Severe kindey Verified 01/03/22 10:30 issues Worker's Comp Is this a Worker's Comp case?: No [facility] Disclaimer: The information contained in this section may have been updated after the patient was seen, as this information can be updated by other users. Medical History Urinary tract infection Surgical History History of section History of tonsillectomy Social History Smoking Status: Current every day smoker tobacco type: cigarettes packs per day: 1 second hand exposure: Yes alcohol intake: never substance use type: denies use current occupational status: employed Travel in the last 8 weeks: None housing: house number of children: 2 ROS Obtained: Yes All systems reviewed & no additional complaints except as documented and Yes Systems reviewed as appropriate & no additional complaints except as documented Constitutional Constitutional: Reports system reviewed and no additional complaints, except as documented, Reports as per HPI, Denies body ache, Denies chills and Denies fever(s) ENT Ears, Nose, Mouth, and Throat: Reports system reviewed and no additional complaints, except as documented and Reports as per HPI Cardiovascular Cardiovascular: Reports system reviewed and no additional complaints, except as documented and Reports as per HPI Respiratory Respiratory: Reports system reviewed and no additional complaints, except as documented and Reports as per HPI Gastrointestinal Gastrointestingal: Reports system reviewed and no additional complaints, except as documented and as per HPI; Denies abdominal pain, diarrhea, nausea or vomiting Genitourinary Female Genitourinary: Reports system reviewed and no additional complaints, except as documented, Reports as per HPI, Reports dysuria, Reports urinary frequency and Reports urinary urgency Physical Exam General General appearance: alert and in no apparent distress ENT ENT exam: Present mucous membranes moist Respiratory Respiratory exam: Present normal lung sounds bilaterally; Absent respiratory distress or wheezes Cardiovascular Cardiovascular exam: Present regular rate, normal rhythm and normal heart sounds Abdominal Exam Abdominal exam: Present soft and normal bowel sounds; Absent distention or tenderness Neurological Exam Neurological exam: Present alert, oriented X3 and normal gait Medical Decision Making Prince Inquiry Pt receiving controlled substance: No Prince was queried for this patient: No Vital Signs: 04/08/23 08:50 04/08/23 09:16 Temperature 98.1 F 98.1 F Temperature Source Oral Pulse Rate 90 Pulse Rate [Left Brachial] 90 Respiratory Rate 18 18 Blood Pressure 124/89 Blood Pressure [Left Arm] 124/89 Blood Pressure Mean [Left Arm] 100 Blood Pressure Source [Left Arm] Automatic Cuff Blood Pressure Position [Left Arm] Sitting 02 Sat by Pulse Oximetry 100 Oxygen Delivery Method Room Air Lab Data Lab results reviewed: Yes I reviewed the patient's lab results. Lab Results 04/08/23 08:49: Urine Color Dark yellow, Urine Appearance Cloudy, Urine pH 7.0, Ur Specific Muse 1.025, Urine Protein Trace, Urine Glucose (UA) Negative, Urine Ketones Negative, Urine Blood Negative, Urine Nitrate Positive A, Urine Bilirubin Negative, Urine Urobilinogen 0.2, Ur Leukocyte Esterase Trace Orders (Tests/Meds): ORDERS Category Date Time Status Urine Culture Stat Micro 04/08/23 08:58 Ordered
== END 2023-04-08 09:34 | disposition home or self-care (01) ==
PROVIDERS: Emergency Provider Nurse Practitioner; PCP Internal Medicine Adolescent Medicine
DX: N39.0 Urinary tract infection, site not specified (principal); B96.29 Other Escherichia coli [E. coli] as the cause of diseases classified elsewhere; F17.210 Nicotine dependence, cigarettes, uncomplicated
CPT/HCPCS: 81003; 87086; 99212; 99214; G0463

== ENCOUNTER 2023-06-12 17:20 | Emergency (ER) | payer OTHER, SELFPAY ==
[2023-06-12 18:20] VITALS: BP 137/98; PULSE 64; RESP 16; TEMP 36.8; O2SAT 100; BMI 21.6
--- NOTE | 2023-06-12 18:38 | EXP.UTC ---
Discharge Plan Disposition Patient Disposition: Home, Self-Care Condition: Good Prescriptions Prescriptions: New cefdinir 300 mg capsule 300 mg PO Q12H Qty: 20 0RF fluticasone propionate [Flonase Allergy Relief] 50 mcg/actuation spray,suspension 2 spray intranasal DAILY Qty: 16 0RF Rx Instructions: administer into each nostril daily Referrals Follow up/Referrals: Clay Gallagher MD [Primary Care Provider] - See instructions Activity Restrictions/Add. Instructions Additional Instructions/Restrictions: *Monitor Temp, Over the counter Motrin or Tylenol as directed/as needed Tylenol every 4 hours and Motrin every 6 hours (as long as your family doctor has told you that you can take it) for fever or pain. and straight to ER if unable to lower temp less than 101.0 after medication given *Warm salt water gargles may help to soothe the throat *Throat Lozenges? *Warm fluids like tea with honey may help to soothe the throat? *Sleep elevated *Humidifier/Vaporizer *Flonase 2 sprays in each nostril daily but be aware that it may take 2-3 days before you notice improvement Take medication as prescribed Your throat swab was sent for culture. Those results are typically sent to your primary care. Be sure to follow up in 2-3 days with your family doctor/primary care physician if no improvement so they can review those result and treat if necessary. If you don?t have a primary care doctor, I recommend you get one but in the mean time, you will have to return to a walk in clinic Follow up IMMEDIATELY for new or worsening symptoms or no Noticeable improvement over the next 48-72 hours. 911 for difficulty breathing or swallowing Clinical Impressions Clinical Impression: Sinusitis Instructions Patient Instructions: DI for Sinusitis, Sore Throat Discharge ED Provider: Maggie East [facility] General Stated complaint: Sore Throat Mode of Arrival: Ambulatory Source of Information: Patient Limitations: No Limitations Time Seen by Provider: 06/12/23 18:38 Description of Symptoms (Recalled from Triage Doc. by RN): PATIENT C/O SORE THROAT, RUNNY NOSE AND CONGESTION THAT STARTED LAST MONDAY HEENT Symptoms (Recalled from RN notes): Yes Resp Symptoms (Recalled from RN notes): No Skin Symptoms (Recalled from RN notes): No MS Symptoms (Recalled from RN notes): No Functional Status (Recalled from RN notes): WNL History of Present Illness Provider Complaint: Patient states that for the last week she has been having sore throat, sinus congestion, drainage, and cough States that yesterday her throat started hurting worse so today when it was still bothering her she came in Related Data Previous Rx's Medication Instructions Recorded cefdinir 300 mg capsule 300 mg PO Q12H #20 caps 06/12/23 fluticasone propionate 50 2 spray intranasal DAILY #16 grams 06/12/23 mcg/actuation nasal spray,suspension (Flonase Allergy Relief) Allergies Allergy/AdvReac Type Severity Reaction Status Date / Time ibuprofen AdvReac Severe kindey Verified 01/03/22 10:30 issues Worker's Comp Is this a Worker's Comp case?: No [facility] Disclaimer: The information contained in this section may have been updated after the patient was seen, as this information can be updated by other users. Medical History Urinary tract infection Surgical History History of section History of tonsillectomy Social History Smoking Status: Current every day smoker tobacco type: cigarettes packs per day: 1 second hand exposure: Yes alcohol intake: never substance use type: denies use current occupational status: employed Travel in the last 8 weeks: None housing: house number of children: 2 ROS Obtained: Yes All systems reviewed & no additional complaints except as documented and Yes Systems reviewed as appropriate & no additional complaints except as documented Constitutional Constitutional: Reports system reviewed and no additional complaints, except as documented, Reports as per HPI and Reports headache(s) ENT Ears, Nose, Mouth, and Throat: Reports system reviewed and no additional complaints, except as documented, Reports as per HPI, Reports headache(s), Reports nasal congestion, Reports sinus pressure and Reports sore throat Cardiovascular Cardiovascular: Reports system reviewed and no additional complaints, except as documented and Reports as per HPI Respiratory Respiratory: Reports system reviewed and no additional complaints, except as documented, Reports as per HPI and Reports cough Gastrointestinal Gastrointestingal: Reports system reviewed and no additional complaints, except as documented and as per HPI Neurologic Neurologic: Reports headache(s) Physical Exam General General appearance: alert and in no apparent distress ENT ENT exam: Present mucous membranes moist Expanded ENT Exam Nose exam: Present sinus tenderness Throat exam: Present other (Pharyngeal erythema noted with PND) Respiratory Respiratory exam: Present normal lung sounds bilaterally; Absent respiratory distress or wheezes Cardiovascular Cardiovascular exam: Present regular rate, normal rhythm and normal heart sounds Abdominal Exam Abdominal exam: Present soft and normal bowel sounds; Absent distention or tenderness Neurological Exam Neurological exam: Present alert, oriented X3 and normal gait Medical Decision Making Prince Inquiry Pt receiving controlled substance: No Prince was queried for this patient: No Vital Signs: 06/12/23 18:20 Temperature 98.2 F Temperature Source Oral Pulse Rate [Right Brachial] 64 Respiratory Rate 16 Blood Pressure [Right Arm] 137/98 H Blood Pressure Mean [Right Arm] 111 Blood Pressure Source [Right Arm] Automatic Cuff Blood Pressure Position [Right Arm] Sitting 02 Sat by Pulse Oximetry 100 Oxygen Delivery Method Room Air Lab Data Lab results reviewed: Yes I reviewed the patient's lab results.
[2023-06-12 18:39] LABS: UTC Strep Screen (Rapid) Negative (Negative)
[2023-06-12 18:50] VITALS: BP 137/98; PULSE 64; RESP 16; TEMP 36.8; O2SAT 100
== END 2023-06-12 18:51 | disposition home or self-care (01) ==
PROVIDERS: Emergency Provider Nurse Practitioner; PCP Internal Medicine Adolescent Medicine
DX: J01.90 Acute sinusitis, unspecified (principal); J02.9 Acute pharyngitis, unspecified; R09.81 Nasal congestion; R05.9 Cough, unspecified; F17.210 Nicotine dependence, cigarettes, uncomplicated
CPT/HCPCS: 87880; 99212; 99214; G0463

== ENCOUNTER 2023-10-06 18:00 | Outpatient (CLI) | payer OTHER, SELFPAY | END 2023-10-06 23:59 | disposition home or self-care (01) | LOC: LAB.DROPOF 10-07 10:27 | PROVIDERS: PCP Student in an Organized Health Care Education/Training Program; Visit Provider Student in an Organized Health Care Education/Training Program | DX: N39.0 Urinary tract infection, site not specified (principal); B96.20 Unspecified Escherichia coli [E. coli] as the cause of diseases classified elsewhere | CPT/HCPCS: 87086; 87088; 87186 ==

== ENCOUNTER 2023-11-04 10:46 | Outpatient (CLI) | payer OTHER, SELFPAY | END 2023-11-04 23:59 | disposition home or self-care (01) | LOC: LAB.DROPOF 10:47 | PROVIDERS: PCP Internal Medicine Adolescent Medicine; Visit Provider Internal Medicine Adolescent Medicine | DX: R30.0 Dysuria (principal) | CPT/HCPCS: 87086 ==

== ENCOUNTER 2023-11-15 07:17 | Outpatient (CLI) | payer OTHER, SELFPAY ==
--- NOTE | 2023-11-15 07:21 | US_ITS ---
FINAL REPORT CLINICAL HISTORY: GENERALIZED ABN PAIN, DIARRHEA FINDINGS: Sonographic images of the abdomen were obtained. The liver has an unremarkable appearance with normal echogenicity. The gallbladder has an unremarkable appearance without evidence of gallstones. There is no evidence of biliary ductal dilatation. The common hepatic duct measures 3 mm, which is within normal limits. The pancreas is unremarkable. The spleen size is normal. The right kidney measures 9.0 cm in length. The left kidney measures 9.1 cm in length. There is normal renal echogenicity. There is no evidence of hydronephrosis. The aorta has an unremarkable appearance. Limited images of the inferior vena cava are unremarkable. IMPRESSION: Unremarkable abdominal ultrasound with no acute abnormality identified. Reviewed, Interpreted and Dictated by Brett Bustillos III, MD Transcribed by Mahsa Rivas Authenticated and [facility]
== END 2023-11-15 23:59 | disposition home or self-care (01) ==
LOC: RAD 07:18
PROVIDERS: PCP Internal Medicine Adolescent Medicine; Visit Provider Internal Medicine Adolescent Medicine
DX: R10.84 Generalized abdominal pain (principal); R19.7 Diarrhea, unspecified
CPT/HCPCS: 76700

== ENCOUNTER 2024-01-15 10:59 | Outpatient (CLI) | payer OTHER, SELFPAY | END 2024-01-15 23:59 | disposition home or self-care (01) | LOC: LAB.DROPOF 01-16 10:59 | PROVIDERS: PCP Student in an Organized Health Care Education/Training Program; Visit Provider Student in an Organized Health Care Education/Training Program | DX: R39.9 Unspecified symptoms and signs involving the genitourinary system (principal) | CPT/HCPCS: 87086 ==

== ENCOUNTER 2024-02-13 14:26 | Outpatient (CLI) | payer OTHER, SELFPAY ==
[2024-02-13 18:47] LABS: Basophils % 0.7 % (0.1-2.0); Eosinophils # 0.2 K/mm3 (0.0-0.4); Eosinophils % 3.4 % (0.1-12.0); Hematocrit 36.1 % (37.0-47.0); Hemoglobin 12.6 g/dL (12.2-16.2); Lymphocytes # 2.6 K/mm3 (0.7-4.5); Lymphocytes % 42.1 % (10-50); Mean Corpuscular HGB Conc 34.9 g/dL (31.8-35.4); Mean Corpuscular Hemoglobin 32.2 pg (27.0-31.2); Mean Corpuscular Volume 92.1 fl (81-99); Mean Platelet Volume 9.4 fl (7.4-10.4); Monocytes # 0.3 K/mm3 (0.1-1.0); Neutrophils % 48.8 % (37.0-80.0); Platelet Count 246 K/mm3 (142-424); Red Blood Count 3.92 M/mm3 (4.20-5.40); Red Cell Distribution Width 13.2 % (11.5-17.5); White Blood Count 6.1 K/mm3 (4.8-10.8)
[2024-02-13 19:18] LABS: Alanine Aminotransferase 14 U/L (12-78); Albumin Level 4.5 g/dl (3.5-5.0); Albumin/Globulin Ratio 2.3 (1.1-1.8); Alkaline Phosphatase 41 U/L (38-126); Aspartate Amino Transferase 20 U/L (14-36); Bilirubin,Total 0.8 mg/dl (0.2-1.3); Blood Urea Nitrogen 13 mg/dl (7-17); Calcium 9.2 mg/dl (8.4-10.2); Carbon Dioxide 24 mmol/L (22.0-30.0); Chloride 104 mmol/L (98-107); Estimated Glomerular Filt Rate 99 ml/min (>60); GFR (African American) 120 ML/MIN (>60); Glucose 79 mg/dl (74-100); Sodium 138 mmol/L (136-145); Total Protein,Serum 6.5 g/dl (6.3-8.2)
== END 2024-02-13 23:59 | disposition home or self-care (01) ==
LOC: LAB.DROPOF 02-14 10:49
PROVIDERS: PCP Student in an Organized Health Care Education/Training Program; Visit Provider Student in an Organized Health Care Education/Training Program
DX: R39.9 Unspecified symptoms and signs involving the genitourinary system (principal); N30.00 Acute cystitis without hematuria
CPT/HCPCS: 80053; 85025; 87086

== ENCOUNTER 2024-11-18 22:20 | Emergency (ER) | payer OTHER, SELFPAY ==
[2024-11-18 22:46] VITALS: BP 147/94; PULSE 80; RESP 16; TEMP 36.7; O2SAT 98; BMI 20.7
--- NOTE | 2024-11-18 22:46 | XR_ITS ---
PROCEDURE INFORMATION: Exam: XR Left Ankle Exam date and time: 11/18/2024 10:54 PM Age: 29 years old Clinical indication: Pain; Ankle; Left; Additional info: Pain, swelling, lateral left foot TECHNIQUE: Imaging protocol: Radiologic exam of the left ankle. Views: 1 or 2 views. COMPARISON: CR XR FOOT LT 2V 11/18/2024 10:54 PM FINDINGS: Bones/joints: The ankle mortise is intact and symmetric. The talar dome is normal. No acute fracture. No significant degenerative changes. Soft tissues: Normal. IMPRESSION: No acute findings.
--- NOTE | 2024-11-18 22:46 | ED_ITS ---
Discharge Plan Disposition Patient Disposition: Home, Self-Care Prescriptions Prescriptions: No Action nitrofurantoin monohyd/m-cryst 100 mg capsule 100 mg PO Q12H 7 Days Qty: 14 0RF Rx Instructions: must administer with a meal/food phenazopyridine [Pyridium] 100 mg tablet 100 mg PO QPC Qty: 6 0RF Referrals Follow up/Referrals: Abhijeet Hawkins DO [Staff Physician, Orthopedics] - See instructions Clay Gallagher MD [Primary Care Provider, Internal Medicine] - See instructions Activity Restrictions/Add. Instructions Additional Instructions/Restrictions: No fractures were noted on today's x-rays. You likely have an ankle sprain. Encouraged to take Tylenol and ibuprofen to help with symptoms. You are being provided a walking boot to use as needed for comfort. I am given you referral to Dr. Hawkins with orthopedic team. If symptoms do not improve over the next 1 to 2 weeks, I encourage you to call his office and arrange a follow-up appointment. Clinical Impressions Clinical Impression: Left ankle sprain Instructions Patient Instructions: DI for Low Back Pain Print Language Print Language: Ukrainian Discharge ED Provider: Bart Hayden General Adult HPI General Chief complaint: Back Pain/Injury Stated complaint: AO 11/18/24 1930 Injury left ankle Time Seen by Provider: 11/18/24 22:41 History of Present Illness HPI narrative: Ileana Capps is a 29y female who presents to the emergency department for complaints of pain in her left foot/ankle after playing soccer [employer] Patient states that she was playing [employer] and after the game, noticed some pain and swelling to the lateral aspect of her left foot near her ankle. She did not remember a specific incident where she injured the foot. She states that she is able to bear weight on it but it is painful to do so. She describes numbness and tingling in her 2nd, 3rd and 4th toes. She states that she took Tylenol prior to arrival. Related Data Previous Rx's ?Medication ?Instructions ?Recorded nitrofurantoin 100 mg PO Q12H 7 days #14 ca ps 02/13/24 monohydrate/macrocrystals 100 mg capsule phenazopyridine 100 mg tablet 100 mg PO QPC 6 doses #6 tabs 02/13/24 (Pyridium) Allergies Allergy/AdvReac Type Severity Reaction Status Date / Time ibuprofen AdvReac Severe kindey Verified 02/13/24 15:31 issues [facility] Disclaimer: The information contained in this section may have been updated after the patient was seen, as this information can be updated by other users. Medical History Generalized anxiety disorder with panic attacks PTSD (post-traumatic stress disorder) Urinary tract infection Surgical History History of tonsillectomy History of section Social History Smoking Status: Current every day smoker tobacco type: cigarettes packs per day: 1 second hand exposure: Yes alcohol intake: never substance use type: denies use current occupational status: employed Travel in the last 8 weeks?: None housing: house number of children: 2 Have you lived/traveled outside US in past 30 days?: No Contact w/someone who lives/traveled outside US past 30 days?: No Exposure to someone with infectious disease in past 14 days?: No Do you have a fever (greater than 100.4 F or 38 C)?: No Have you tested positive for COVID-19?: No Exposed to someone with COVID-19 in past 14 days?: No Do you have a sore throat?: No Do you have a cough?: No Do you have any weakness?: No Do you have any diarrhea?: No Are you experiencing any unusual bleeding?: No Do you have any muscle aches/pain?: No Do you have any abdominal pain?: No Are you experiencing loss of taste or smell?: No Other Medical History Have you received the Flu Vaccine for this season: No Have you received the Pneumonia Vaccine: No ROS Obtained: Yes Systems reviewed as appropriate & no additional complaints except as documented Physical Exam General General appearance: alert and in no apparent distress Head Head exam: atraumatic Eye Eye exam: Present normal appearance ENT ENT exam: Present normal external ear exam Neck Neck exam: Present full ROM Chest Chest inspection: Present symmetric chest wall rise Respiratory Respiratory exam: Present normal lung sounds bilaterally; Absent respiratory distress Cardiovascular Cardiovascular exam: Present regular rate and normal rhythm Abdominal Exam Abdominal exam: Present soft; Absent tenderness or guarding Extremities Exam Extremities exam: Present normal inspection Expanded Lower Extremity Exam Left: Top foot image: 2 1. tenderness, mild swelling Back Exam Back exam: Present normal inspection Neurological Exam Neurological exam: Present alert and oriented X3 Psychiatric Psychiatric exam: Present normal affect Skin Skin exam: Present warm and dry Medical Decision Making Medical Records Screening: Per USPSTF and CDC recommendations, given the prevalence of disease in our region, it is our hospital?s policy to screen for HIV and viral Hepatitis for all patients aged 18 and over and those with ongoing risk factors. [place] Inquiry Pt receiving controlled substance: No Vital Signs: 11/18/24 22:46 11/18/24 23:00 11/18/24 23:41 Temperature 98.0 F 98.0 F Temperature Source Oral Oral Pulse Rate 59 L 64 Pulse Rate [Right Radial] 80 Respiratory Rate 16 16 Blood Pressure 126/83 120/80 Blood Pressure [Right Arm] 147/94 H Blood Pressure Mean [Right Arm] 111 Blood Pressure Source Automatic Cuff Blood Pressure Source [Right Arm] Automatic Cuff Blood Pressure Position Sitting Blood Pressure Position [Right Arm] Sitting 02 Sat by Pulse Oximetry 98 99 Oxygen Delivery Method Room Air Room Air Orders (Tests/Meds): ORDERS Category Date Time Status Ankle XR - Left 2 Views [XR ankle LT 2V] Stat Exams 11/18/24 22:46 Completed Foot XR left 2 views [XR foot LT 2V] Stat Exams 11/18/24 22:46 Completed Medical Decision Narrative: Ileana Capps is a 29y female who presents to the emergency department for complaints of pain in her left foot/ankle after playing soccer [employer] Patient states that she was playing [employer] and after the game, noticed some pain and swelling to the lateral aspect of her left foot near her ankle. She did not remember a specific incident where she injured the foot. She states that she is able to bear weight on it but it is painful to do so. She describes numbness and tingling in her 2nd, 3rd and 4th toes. She states that she took Tylenol prior to arrival. On arrival, patient was able to ambulate into the emergency department. She is hemodynamically stable, no acute respiratory distress, breathing comfortably on room air. GCS 15. On physical exam, she has point tenderness over the left lateral foot inferior and distal to the lateral malleolus. There is mild amount of swelling in this area. She has full strength with dorsi and plantarflexion. Sensation is grossly intact and equal to bilateral feet. DP and PT pulses are 2+. No skin changes are noted. Differential diagnosis includes, but is not limited to: Fracture, ankle sprain, bruising, among others. The most morbid conditions were considered and workup was based on these. X-ray imaging of the left foot and ankle were obtained. These were interpreted by me personally. There is no acute fracture or dislocation. See radiology report for final details. Is what the patient likely sprained her ankle, possibly the ATFL. She will be placed in a walking boot at this time for comfort and was instructed to take Tylenol and ibuprofen to help with symptoms. Will give her referral for Dr. Hawkins with orthopedic team if symptoms do not improve with conservative management. Return precautions were given. All questions were answered. She demonstrated understanding and was in agreement this plan. She was then discharged from the emergency department in stable condition. Critical Care Critical Care Time Critical Care Time: No
--- NOTE | 2024-11-18 22:46 | XR_ITS ---
PROCEDURE INFORMATION: Exam: XR Left Foot Exam date and time: 11/18/2024 10:54 PM Age: 29 years old Clinical indication: Pain; Foot; Left; Additional info: Pain, swelling, lateral left foot TECHNIQUE: Imaging protocol: Radiologic exam of the left foot. Views: 1 or 2 views. COMPARISON: CR XR ANKLE LT 2V 11/18/2024 10:54 PM FINDINGS: Bones/joints: The foot is normally aligned. No acute fracture or significant degenerative change. The joint spaces are intact. Soft tissues: Normal. IMPRESSION: No acute findings.
--- OUTSIDE RECORDS SUMMARY | 2024-11-18 22:48 | XMS_ITS | Clinical Summary ---
Author Organization [facility] Address [address] [place] [address] Care Team Providers Care Chop Saw Operator Name Role Phone Clay Gallagher MD Primary Care Provider [phone] Allergies Active Allergy Reactions Criticality Noted Date Comments Ibuprofen Other (See Comments) High 05/30/2022 Kidney disease, can't use NSAIDS Nsaids Other (See Comments) High 05/30/2022 Kidney disease, cannot tolerate any NSAIDS Medications methenamine (HIPREX) 1 g tabletIndication s:History of recurrent UTIs Take 1 tablet by mouth 2 (Two) Times a Day With Meals. 60 tablet 11 08/31/2023 Active sulfamethoxazole -trimethoprim (Bactrim) 400-80 MG tabletIndication s:History of recurrent UTIs Take 1 tablet by mouth Daily As Needed (within 2 hours of sexual activity). 30 tablet 11 08/31/2023 Active Active Problems Problem Noted Date Diagnosed Date Abnormal Pap smear of cervix 08/31/2022 Overview (08/31/2022): 08/23 colpo; 07/24 pap ASCUS, HPV non 16/18/45+ 10/22 pap ASCUS, HPV non 16/18/45+ Chronic kidney disease, stage 2 (mild) 5 Resolved Problems Problem Noted Date Diagnosed Date Resolved Date Heartburn 03/09/2022 04/06/2022 Assessment & Plan (03/09/2022 9:40 AM EST): tennille peguero sent Screening for diabetes mellitus 03/09/2022 04/06/2022 care, subsequent pr egnancy, second trimester 03/09/2022 04/06/2022 Supervision of other normal , antepartum 02/28/2022 04/06/2022 10/14/2021 07/27/2022 Overview (04/20/2022): +UDS THC, stopped with + upt. Has stopped vaping nicotine as well 11 wks EFW 33 wks 55%ile Essential (primary) hypertension 01/16/2017 04/06/2022 Previous delivery a ffecting 07/20/2016 07/27/2022 Overview (04/20/2022): x2 Repeat is scheduled. Ovarian mass 07/20/2016 10/14/2021 Proteinuria 01/26/2015 05/26/2022 Other microscopic hematuria 01/26/2015 07/27/2022 Overview (03/09/2022): Converted unresolved ICD9, potential mismatch. Family History Medical History Relation Name Comments Arthritis Maternal Grandfather Hyperlipidemia Maternal Grandfather Hypertension Maternal Grandfather Diabetes Maternal Grandmother Hypertension Maternal Grandmother Hypertension Mother Stroke Other MGGF Relation Name Status Comments Maternal Grandfather Maternal Grandmother Mother Other MGGF Social History Tobacco Use Types Packs/Day Years Used Date Smoking Tobacco: Former Cigarettes 0.5 7 2 015 - 2021 Passive Smoke Exposure: Past Smokeless Tobacco: Never Tobacco Cessation:Counseling Given: No Comments:3 cig daily Alcohol Use Standard Drinks/Week Comments Not Currently 0 (1 standard drink = 0.6 oz pure alcohol) Per Seymour, occasional/no abuse AUDIT-C Answer Date Recorded Q1: How often do you have a drink containing alc ohol? Monthly or less 05/31/2022 Q2: How many drinks containi ng alcohol do you have on a typical day when you are drinking? 1 or 2 05/31/2022 Q3: How often do you have si x or more drinks on one occasion? Never 05/31/2022 [place] Depression Scale Answer Date Recorded Retired [place] Depression Score 1 06/17/2022 Retired EPD Scale: Thought of Harming Self Unrec ognized value 06/17/2022 Abuse Screen Answer Date Recorded Unsafe at Home or Work/School Not on file Feels Threatened by Someone? Not on file 10/2023 Does Anyone Keep You from Co ntacting Others or Doint Things Outside the Home? Not on file 06/08/2023 Physical Sign of Abuse Present Not on file 0 06/08/2023 Housing Stability Answer Date Recorded Current Living Arrangements Not on file 10/2023 Potentially Unsafe Housing Conditions Not on naomi e 06/08/2023 Family and Community Support Answer Leonardo e Recorded Help with Day-to-Day Activities Not on file 01/09/2023 Lonely or Isolated Not on file 01/09/2023 Employment Answer Date Recorded Do you want help finding or keeping work or a rigo b? Not on file 01/09/2023 Disabilities Answer Date Recorded Concentrating, Remembering, or Making Decisions Difficulty Not on file 06/08/2023 Doing Errands Independently Difficulty Not on fi le 06/08/2023 Education Answer Date Recorded Help with school or training? 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 Not on file Not on naomi e Last Filed Vital Signs Vital Sign Reading Time Taken Comments Blood Pressure 121/80 08/31/2023 1:09 PM EDT Pulse 84 08/31/2023 1:09 PM EDT Temperature 37.2 C (99 F) 06/02/2022 7:35 AM EST Respiratory Rate 18 06/02/2022 7:35 AM EST Oxygen Saturation 100% 08/31/2023 1:09 PM EDT Inhaled Oxygen Concentration - - Weight 57.2 kg (126 lb) 08/31/2023 1:09 PM EDT Height 162.6 cm (5' 4 ) 08/31/2023 1:09 PM EDT Body Mass Index 21.63 08/31/2023 1:09 PM EDT Plan of Treatment Health Maintenance Due Date Last Done Comments TDAP/TD VACCINES (1 - Tdap) 2013 ANNUAL PHYSICAL 07/20/2016 Annual Gynecologic Pelvic an d Breast Exam 10/15/2022 10/14/2021 COVID-19 Vaccine ( - 2023-2 5 season) 2023 INFLUENZA VACCINE 01/01/2025 HEPATITIS C SCREENING Completed 10/14/2021 Pneumococcal Vaccine 0-49 Aged Out No longer eligible based on patient's age to complete this topic Medical Devices Implanted Type Area Training Engineer Device Identifier Shelf Expiration Date Model / Serial / Lot Metal Implant In Knee Implant Procedures Procedure Name Priority Date/Time Associated Diagnosis Comments OBSTETRIC PANEL Routine 10/14/2021 12:24 PM EDT Less than 8 weeks gestation of from Last 3 Months or Most Recently Relevant to Health Maintenance Results * Obstetric Panel (10/14/2021 12:24 PM EDT) Hepatitis B Surface Ag Negative Negative [facility] Hep C Virus Ab <0.1 0.0 - 0.9 s/co ratio [facility] Comment: Negative: < 0.8 Indeterminate: 0.8 - 0.9 Positive: > 0.9 HCV antibody alone does not differentiate between previous resolved infection and active infection. The CDC and current clinical guidelines recommend that a positive HCV antibody result be followed up with an HCV RNA test to support the diagnosis of acute HCV infection. [facility] offers Hepatitis C Virus (HCV) RNA, Diagnosis, PETER (628610) and Hepatitis C Virus (HCV) Antibody with reflex to Quantitative Real-time PCR (727203). RPR Non Reactive Non Reactive [facility] Rubella Antibodies, IgG 6.38 Immune >0.99 index [facility] Comment: Non-immune <0.90 Equivocal 0.90 - 0.99 Immune >0.99 ABO Type O [facility] Rh Factor Positive [facility] Comment: Please note: Prior records for this patient's ABO / Rh type are not available for additional verification. Antibody Screen Negative Negative [facility] WBC 3.8 3.4 - 10.8 x10E3/uL [facility] RBC 4.46 3.77 - 5.28 x10E6/uL [facility] Hemoglobin 14.2 11.1 - 15.9 g/dL [facility] Hematocrit 40.6 34.0 - 46.6 % [facility] MCV 91 79 - 97 fL [facility] MCH 31.8 26.6 - 33.0 pg [facility] MCHC 35.0 31.5 - 35.7 g/dL [facility] RDW 12.2 11.7 - 15.4 % [facility] Platelets 192 150 - 450 x10E3/uL [facility] Neutrophil Rel % 53 Not Estab. % [facility] Lymphocyte Rel % 33 Not Estab. % [facility] Monocyte Rel % 11 Not Estab. % [facility] Eosinophil Rel % 2 Not Estab. % [facility] Basophil Rel % 1 Not Estab. % [facility] Neutrophils Absolute 2.0 1.4 - 7.0 x10E3/uL [facility] Lymphocytes Absolute 1.2 0.7 - 3.1 x10E3/uL [facility] Monocytes Absolute 0.4 0.1 - 0.9 x10E3/uL [facility] Eosinophils Absolute 0.1 0.0 - 0.4 x10E3/uL [facility] Basophils Absolute 0.0 0.0 - 0.2 x10E3/uL [facility] Immature Granulocyte Rel % 0 Not Estab. % [facility] Immature Grans Absolute 0.0 0.0 - 0.1 x10E3/uL [facility] Blood 10/14/2021 12:2 4 PM EDT 10/15/2021 Narrative [facility]) - 10/20/2021 5:08 PM EDT Performed at: - [facility] [address] [id number] Stable Cleaner: Lele Muñoz PhD, Phone: [phone] us Edna Draper MD LAB BLOOD ORDERABLES Final Resul t [facility]) [address] [place] [address], [facility] [address] [place] [address], from Last 3 Months or Most Recently Relevant to Health Maintenance Insurance [facility] [place] Advance Directives * CPR (Attempt to Resuscitate) (Latest Code Status on File) Date Activated Date Inactivated Comments 05/31/2022 1:02 PM 06/02/2022 3:37 PM Question Answer Comments Code Status (Patient has no pulse and is not breathing): CPR (Attempt to Resuscitate) Medical Interventions (Patie nt has pulse or is breathing): Full Care Teams Chop Saw Operator Relationship Specialty Start Date End Date Clay Gallagher MD [address] [place] [facility] [address] [place] [address] PCP - General Adolescent Medicine 05/31/22
--- OUTSIDE RECORDS SUMMARY | 2024-11-18 22:48 | XMS_ITS | Patient Health Record ---
Author Organization [facility] Address [address] [address] Care Team Providers Care Roller Skate Assembler Name Role Phone SANTHOSH MIKAELAGURPREETEMILE Primary Care Provider Allergies No Known Allergies Reason For Referral No Information Immunizations Vaccine Route Administration Date Status Comme nts Influenza, high dose seasonal Unknown Admini stered Social History Tobacco Use: Social History Observation Description Date Details (start date - stop date) Current Smoker NA - NA Tobacco Use/Smoking Question Answer Notes Are you a current every day smoker Alcohol Screen (Audit-C) Question Answer Notes Did you have a drink containing alcohol in the p ast year? No Points 0 Interpretation Negative Tobacco use other than smoking: Question Answer Notes Are you an other tobacco user? No Problems Problem Type SNOMED Code ICD Code Onset Dates Problem Status W/U Status Risk Notes Problem Benign essential microscopic hematuria (045880869557896 ) Benign essential microscopic hematuria (R31.1) Active confirmed Problem Isolated proteinuria (79110572112141) Isolated proteinuria (R80.0) Active confirmed Plan Of Treatment Pending Test Test Name Order Date Urinalysis, Complete 09/01/2020 Comp. Metabolic Panel (14) 09/01/2020 Insurance Providers Payer Name Payer Address Payer Phone Subscriber Number Group Number Insured Name Patient Relationship to Insured Coverage Start Date Coverage End Date [facility] MEDICAID [address] [place] [address] [id number] Ileana Capps Self - patient is the insured Medical (General) History Medical History History ICD Code Other: (Balbir) Surgical History Surgery Date(Month/Year) 2015, 2017
--- NOTE | 2024-11-18 22:50 | PC.NURSE ---
Pt awake alert and oriented Skin pink warm and dry REsp full and easy Speech clear and appropriate Family at bedside Pedal pulses strong and equal
[2024-11-18 23:00] VITALS: BP 126/83; PULSE 59; O2SAT 99
[2024-11-18 23:41] VITALS: BP 120/80; PULSE 64; RESP 16; TEMP 36.7; O2SAT 99
== END 2024-11-18 23:47 | disposition home or self-care (01) ==
PROVIDERS: Emergency Provider Student in an Organized Health Care Education/Training Program; PCP Internal Medicine Adolescent Medicine
DX: S93.402A Sprain of unspecified ligament of left ankle, initial encounter (principal); M25.572 Pain in left ankle and joints of left foot; X58.XXXA Exposure to other specified factors, initial encounter
CPT/HCPCS: 73600; 73620; 99282; 99283

== ENCOUNTER 2024-11-25 12:11 | Outpatient (CLI) | payer OTHER, SELFPAY ==
--- OUTSIDE RECORDS SUMMARY | 2024-11-29 12:12 | XMS_ITS | Clinical Summary ---
Author Organization [facility] Address [address] [place] [address] Care Team Providers Care Supervisor Hide House Name Role Phone Clay Gallagher MD Primary Care Provider [phone] Allergies Active Allergy Reactions Criticality Noted Date [...] drink = 0.6 oz pure alcohol) Per Bryce, occasional/no abuse AUDIT-C Answer Date Recorded Q1: How often do you have a drink containing alc ohol? Monthly or less 05/31/2022 Q2: How many drinks containi ng alcohol do you have on a typical day when you are drinking? 1 or 2 05/31/2022 Q3: How often do you have si x or more drinks on one occasion? 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 RPR Non Reactive Non Reactive [facility] [...] 12:2 4 PM EDT 10/15/20[address] [facility]) - 10/20/2021 5:08 PM EDT Performed at: - [facility] [address] [id number] Correspondence Transcriber: Lele Muñoz PhD, Phone: [phone] us Edna Draper MD LAB BLOOD ORDERABLES Final Resul t [facility]) [address] [place] [address], [facility] [address] [place] [address], from Last 3 Months or Most Recently Relevant to Health Maintenance Insurance [facility] [place] Advance Directives * CPR (Attempt to Resuscitate) (Latest Code Status on File) Date Activated Date Inactivated Comments 05/31/2022 1:02 PM 06/02/2022 3:37 PM Question Answer Comments Code Status (Patient has no pulse and is not breathing): CPR (Attempt to Resuscitate) Medical Interventions (Patie nt has pulse or is breathing): Full Care Teams Supervisor Hide House Relationship Specialty Start Date End Date Clay Gallagher MD [address] [place] [facility] [address] [place] [address] PCP - General Adolescent Medicine 05/31/22
--- OUTSIDE RECORDS SUMMARY | 2024-11-29 12:13 | XMS_ITS | Patient Health Record ---
Author Organization [facility] Address [address] [address] Care Team Providers Care Policy Specialist Name Role Phone BRISEIDAZAHIRA MIKAELAGURPREETEMILE Primary Care Provider Allergies No Known [...] Risk Notes Problem Benign essential microscopic hematuria ([id number] ) Benign essential microscopic hematuria (R31.1) Active confirmed Problem Isolated proteinuria (82884788047452) Isolated proteinuria (R80.0) Active confirmed Plan Of Treatment Pending Test Test Name Order Date Urinalysis, Complete 09/01/2020 Comp. Metabolic Panel (14) 09/01/2020 Insurance Providers Payer Name Payer Address Payer Phone Subscriber Number Group Number Insured Name Patient Relationship to Insured Coverage Start Date Coverage End Date [facility] MEDICAID [address] [place] [address] [id number] Ileana Capps Self - patient is the insured Medical (General) History Medical History History ICD Code Other: (Balbir) Surgical History Surgery Date(Month/Year) 2015, 2017
== END 2024-11-25 23:59 | disposition home or self-care (01) ==
LOC: LAB.DROPOF 11-29 12:11
PROVIDERS: PCP Internal Medicine Adolescent Medicine; Visit Provider Nurse Practitioner
DX: R35.0 Frequency of micturition (principal)
CPT/HCPCS: 87086; 87088; 87186

== ENCOUNTER 2024-12-31 16:26 | Emergency (ER) | payer OTHER, SELFPAY ==
[2024-12-31 17:12] VITALS: BP 125/98; PULSE 67; RESP 16; TEMP 37; O2SAT 100; BMI 20.7
--- OUTSIDE RECORDS SUMMARY | 2024-12-31 17:36 | XMS_ITS | Patient Health Record ---
Author Organization [facility] Address [address] [place] [address] Care Team Providers Care Senior Sales Engineer Name Role Phone BRISEIDAZAHIRA MIKAELAGURPREETEMILE Primary Care [...] Risk Notes Problem Benign essential microscopic hematuria ([id number] ) Benign essential microscopic hematuria (R31.1) Active confirmed Problem Isolated proteinuria (76307574191216) Isolated proteinuria (R80.0) Active confirmed Plan Of Treatment Pending Test Test Name Order Date Urinalysis, Complete 09/01/2020 Comp. Metabolic Panel (14) 09/01/2020 Insurance Providers Payer Name Payer Address Payer Phone Subscriber Number Group Number Insured Name Patient Relationship to Insured Coverage Start Date Coverage End Date [facility] MEDICAID [address] [place] [address] [id number] Ileana Capps Self - patient is the insured Medical (General) History Medical History History ICD Code Other: (Balbir) Surgical History Surgery Date(Month/Year) 2015, 2017
[2024-12-31 17:39] LABS: Microscopic, Urine URINE MICROSCOPIC (MICROSCOPIC)
[2024-12-31 17:45] LABS: Hematocrit 37.2 % (37.0-47.0); Hemoglobin 13.1 g/dL (12.2-16.2); Immature Granulocytes % 0.2 %; Mean Corpuscular HGB Conc 35.2 g/dL (31.8-35.4); Mean Corpuscular Hemoglobin 31.6 pg (27.0-31.2); Mean Corpuscular Volume 89.9 fl (81-99); Nucleated Red Blood Cells % 0 %; Platelet Count 234 K/mm3 (142-424); Red Blood Count 4.14 M/mm3 (4.20-5.40); Red Cell Distribution Width-SD 39.6 fL; White Blood Count 6.3 K/mm3 (4.8-10.8)
[2024-12-31 18:07] LABS: Alanine Aminotransferase 14 U/L (12-78); Albumin Level 4.8 g/dl (3.5-5.0); Albumin/Globulin Ratio 2.3 (1.1-1.8); Alkaline Phosphatase 62 U/L (38-126); Anion Gap 13.8 mEq/L (5-15); Aspartate Amino Transferase 26 U/L (14-36); Bilirubin,Total 1.1 mg/dl (0.2-1.3); Blood Urea Nitrogen 13 mg/dl (7-17); Calcium 9.1 mg/dl (8.4-10.2); Carbon Dioxide 23 mmol/L (22.0-30.0); Chloride 105 mmol/L (98-107); Creatinine Clearance Estimated 92 mL/min (50-200); Creatinine,Serum 0.80 mg/dl (0.52-1.04); Estimated Glomerular Filt Rate 84 ml/min (>60); GFR (African American) 102 ML/MIN (>60); Globulin 2.1 g/dL (1.3-3.2); Glucose 88 mg/dl (74-100); Lipase 67 U/L (23-300); Potassium 3.8 mmoL/L (3.5-5.1); Sodium 138 mmol/L (136-145); Total Protein,Serum 6.9 g/dl (6.3-8.2)
[2024-12-31 18:27] LABS: Bilirubin,Urine Negative (Negative); Color,Urine YELLOW (Yellow); Glucose,Urine (UA) Negative (Negative); Ketones,Urine 1+ (Negative); Leukocyte Esterase,Urine Negative (Negative); PH,Urine 7.0 (5.0-8.5); Protein,Urine Negative (Negative); Specific Gravity, Urine 1.010 (1.005-1.030); Urobilinogen,Urine 0.2 EU/dl (0.2)
[2024-12-31 18:28] LABS: Urine Pregnancy, HCG Qual. Negative (Negative)
[2024-12-31 19:01] LABS: Bacteria,Urine 1+ /lpf; Squamous Epithelial Cell,Urine Occasional #/hpf (0-5)
== END 2024-12-31 19:50 | disposition left against medical advice (07) ==
PROVIDERS: Emergency Provider Emergency Medicine; PCP Internal Medicine Adolescent Medicine
DX: R10.31 Right lower quadrant pain (principal)
CPT/HCPCS: 80053; 81001; 81025; 83690; 85025; 99283

== ENCOUNTER 2025-03-20 08:15 | Outpatient (CLI) | payer OTHER, SELFPAY ==
--- OUTSIDE RECORDS SUMMARY | 2025-03-21 10:19 | XMS_ITS | Clinical Summary ---
Author Organization [facility] Address [address] [place] [address] Care Team Providers Care Mat Weaver Name Role Phone Clay Gallagher MD Primary Care Provider [phone] Allergies Active Allergy Reactions Criticality Noted Date [...] drink = 0.6 oz pure alcohol) Per [place], occasional/no abuse AUDIT-C Answer Date Recorded Q1: How often do you have a drink containing alc ohol? Monthly or less 05/31/2022 Q2: How many drinks containi ng alcohol do you have on a typical day when you are drinking? 1 or 2 05/31/2022 Q3: How often do you have si x or more drinks on one occasion? Never 05/31/2022 Olyphant Depression Scale Answer Date Recorded Olyphant Depression Scale Total 1 06/17/2022 The thought of harming myself has occurred to me . 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 [facility] offers Hepatitis C Virus (HCV) RNA, Diagnosis, PETER (027504) and Hepatitis C Virus (HCV) Antibody with reflex to Quantitative Real-time PCR (173870). RPR Non Reactive Non Reactive [facility] [...] 12:2 4 PM EDT 10/15/2021 Narrative [facility] - 10/20/2021 5:08 PM EDT Performed at: 01 - [facility] [address] [id number] Gate Cutter: Lele Muñoz PhD, Phone: [phone] us Edna Draper MD LAB BLOOD ORDERABLES Final Resul t [facility] [address] [place] [address], [facility] [address] [place] [address], from Last 3 Months or Most Recently Relevant to Health Maintenance Insurance [employer] [facility] Advance Directives * CPR (Attempt to Resuscitate) (Latest Code Status on File) Date Activated Date Inactivated Comments 05/31/2022 1:02 PM 06/02/2022 3:37 PM Question Answer Comments Code Status (Patient has no pulse and is not breathing): CPR (Attempt to Resuscitate) Medical Interventions (Patie nt has pulse or is breathing): Full Care Teams Mat Weaver Relationship Specialty Start Date End Date Clay Gallagher MD [address] [facility] [address] [place] [address] PCP - General Adolescent Medicine 05/31/22
--- OUTSIDE RECORDS SUMMARY | 2025-03-21 10:20 | XMS_ITS | Patient Health Record ---
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 Metabolic Panel (14) 09/01/2020 Insurance Providers Payer Name Payer Address Payer Phone Subscriber Number Group Number Insured Name Patient Relationship to Insured Coverage Start Date Coverage End Date [facility] MEDICA[facility] [address] [place] [phone] [id number] Ileana Capps Self - patient is the insured Medical (General) History Medical History History ICD Code Other: (Balbir) Surgical History Surgery Date(Month/Year) 2015, 2017
== END 2025-03-20 23:59 | disposition home or self-care (01) ==
LOC: LAB.DROPOF 03-21 10:18
PROVIDERS: PCP Internal Medicine Adolescent Medicine; Visit Provider Student in an Organized Health Care Education/Training Program
DX: N39.0 Urinary tract infection, site not specified (principal)
CPT/HCPCS: 87086; 87088; 87186